=== PATIENT | male | born 1975 | race Caucasian/White ===

== ENCOUNTER 2016-08-11 10:34 | Emergency (ER) | payer BC ==
[~2016-08-11] VITALS: Ht 182.9 cm; Wt 105.1 kg
[2016-08-11] MEDS ORDERED: PERCOCET 5/31 TABLET PO (15:24)
[2016-08-11] MEDS ORDERED: CLEOCIN300 MG PO (15:25)
[2016-08-11 15:31] VITALS: BP 129/80
== END 2016-08-11 15:41 | disposition home or self-care (01) ==
LOC: EME 10:34 → EXP 10:34
PROC: 0V950ZZ Drainage of Scrotum, Open Approach (ICD-10-PCS; principal; 2016-08-11)
DX: L72.3 Sebaceous cyst (principal); L08.9 Local infection of the skin and subcutaneous tissue, unspecified; I10 Essential (primary) hypertension; F17.200 Nicotine dependence, unspecified, uncomplicated
CPT/HCPCS: 76870; 87070; 87075; 87076; 87185; 87205; 99281; 99284; J3010

== ENCOUNTER 2016-08-13 12:32 | Emergency (ER) | payer BC ==
[~2016-08-13] VITALS: Ht 182.9 cm; Wt 104.7 kg
[~2016-08-13 12:32] MED LIST: CLEOCIN300 MG PO; PERCOCET 5/31 TABLET PO
[2016-08-13 12:34] VITALS: BP 144/86
[2016-08-13] MEDS ORDERED: PERCOCET 5/31 TABLET PO (14:19)
== END 2016-08-13 14:37 | disposition home or self-care (01) ==
LOC: EME 12:32
DX: L02.214 Cutaneous abscess of groin (principal)
CPT/HCPCS: 99281; 99283

== ENCOUNTER 2018-02-21 11:00 | Emergency (ER) | payer BC ==
[~2018-02-21] VITALS: Ht 180.3 cm; Wt 105.5 kg
[2018-02-21] MEDS ORDERED: VIBRAMYCIN100 MG PO (12:46)
[2018-02-21 12:53] VITALS: BP 126/88
== END 2018-02-21 12:58 | disposition home or self-care (01) ==
LOC: EXP 11:00 → EME 11:00 → EXP 12:58
DX: L03.811 Cellulitis of head [any part, except face] (principal); R51 Headache; F17.200 Nicotine dependence, unspecified, uncomplicated; I10 Essential (primary) hypertension